=== PATIENT | female | born 1975 | race Caucasian/White ===

== ENCOUNTER 2017-08-28 11:26 | Emergency (ER) | payer OTHER ==
[~2017-08-28] VITALS: Ht 157.5 cm; Wt 47.6 kg
[~2017-08-28 11:26] MED LIST: AMBIEN 10 MG TA10 MG PO; CITRATE OF MAG296 ML PO; EXCEDRIN CAPLE1 EACH PO; IBUPROFEN 800800 MG PO; LEXAPRO 10 MG T10 MG PO; SYNTHROID75 MCG PO; TRINATE TABLET1 TAB PO; ULTRAM 50MG TAB50 MG PO
[2017-08-28 11:35] VITALS: BP 93/55
[2017-08-28 12:01] LABS: URINE BILIRUBIN NEGATIVE (Negative); URINE BLOOD NEGATIVE (Negative); URINE COLOR YELLOW; URINE GLUCOSE-RANDOM* NEGATIVE (Negative); URINE KETONES 1+ (Negative); URINE NITRITE NEGATIVE (Negative); URINE PROTEIN (DIPSTICK) NEGATIVE (Negative); URINE SPECIFIC GRAVITY 1.015 (1.003-1.035); URINE UROBILINOGEN 0.2 E.U./dl (0.2-1.0)
[2017-08-28] MEDS ORDERED: ZOLOFT50 MG PO (12:06)
[2017-08-28] MEDS ORDERED: FISH OIL 1,001000 M2 PO (12:07)
[2017-08-28] MEDS ORDERED: ZINC30 M1 PO (12:08)
[2017-08-28] MEDS ORDERED: TURMERIC500 M2 PO (12:08)
[2017-08-28 12:29] LABS: ABSOLUTE NEUTROPHILS 6.4 thou/uL (1.4-8.2); BASOPHILS 0.1 % (0.0-2.0); EOSINOPHILS 0.6 % (0.0-3.0); HEMATOCRIT 43.3 % (37.0-47.0); HEMOGLOBIN 14.6 gm/dL (12.0-15.0); LYMPHOCYTES 10.8 % (24.0-44.0); MCH 31.2 pg (26.0-34.0); MCHC 33.7 g/dL (28.0-37.0); MCV 92.5 fL (80.0-100.0); MONOCYTES 4.6 % (1.0-8.0); PLATELET COUNT 190 thou/uL (150-400); POLYS 83.9 % (36.0-66.0); RBC 4.68 mil/uL (4.20-5.00); RDW 13.3 % (10.5-14.5); WBC 7.6 thou/uL (4.0-11.0)
[2017-08-28 12:33] LABS: CALCIUM 8.1 mg/dL (8.5-10.1); CREATININE 0.7 mg/dL (0.6-1.0); MANUAL DIFF NO; POTASSIUM 3.4 mmol/L (3.5-5.1)
[2017-08-28 12:40] LABS: ALBUMIN 3.7 g/dL (3.4-5.0); TOTAL BILIRUBIN 0.8 mg/dL (<0.1-1.0); TOTAL PROTEIN 6.7 g/dL (6.4-8.2)
[2017-08-28] MEDS ORDERED: ONDANSETRON HCL4 M2 PO (17:12)
[2017-08-28] MEDS ORDERED: BENTYL 20 MG TA20 M1 PO (17:12)
[2017-08-28] MEDS ORDERED: NORCO 5-325 TA1 EACH PO (17:15)
[2017-08-28 18:10] VITALS: BP 86/41
== END 2017-08-28 18:11 | disposition home or self-care (01) ==
LOC: ER 11:26 → EROBS 15:43 → ER 18:11
PROVIDERS: Physician Assistant
DX: I95.9 Hypotension, unspecified (principal); R10.11 Right upper quadrant pain; K63.89 Other specified diseases of intestine; F41.9 Anxiety disorder, unspecified; F10.99 Alcohol use, unspecified with unspecified alcohol-induced disorder; Z86.39 Personal history of other endocrine, nutritional and metabolic disease